=== PATIENT | female | born 1935 | race Hispanic/Latino ===

== ENCOUNTER 2017-11-06 15:03 | Inpatient (IN) | payer MEDICARE ==
[2017-11-06] VITALS (11 sets, daily range): BP systolic 103–158; BP diastolic 34–91
[~2017-11-06] VITALS: Ht 160 cm; Wt 111.2 kg
[~2017-11-06 15:03] MED LIST: ATOR40TA69 PO; CLON0.1T PO; LOSA100T29 PO; METO25TA6 PO; OMEP40CA37 PO; REPA2TAB8 PO; WARF-57 PO
[2017-11-06] MEDS ORDERED: ASPIRIN 325 MG TABLET ONE (15:09)
[2017-11-06 15:23] LABS: BASOPHILS % (AUTO) 0.5 % (0.0-5.0); EOSINOPHILS % (AUTO) 0.2 % (0.0-8.0); HEMATOCRIT 35.3 % (36-48); LYMPHOCYTES % (AUTO) 10.2 % (21.0-51.0); MEAN CORPUSCULAR HEMOGLOBIN 25.2 pg (27.0-33.0); MEAN CORPUSCULAR HGB CONC 32.4 g/dL (32.0-36.0); MEAN CORPUSCULAR VOLUME 77.7 fL (79-99); MONOCYTES % (AUTO) 8.7 % (3.0-13.0); NEUTROPHILS % (AUTO) 80.4 % (40.0-77.0); PLATELET COUNT (AUTO) 213 K/uL (130-400); RED BLOOD CELL COUNT(AUTO) 4.54 MIL/uL (4.00-5.50); RED CELL DISTRIBUTION WIDTH 16.3 % (11.0-15.5); WHITE BLOOD COUNT (AUTO) 12.1 K/uL (4.8-10.8)
[2017-11-06 15:36] LABS: CREATININE 1.5 mg/dL (0.5-1.5); POTASSIUM 4.2 mmol/L (3.5-5.1)
[2017-11-06] MEDS ORDERED: NITROGLYCERIN 5 MG/ML 10 ML VIAL IV ONE ×2 (15:36→16:02)
[2017-11-06] MEDS ORDERED: HEPARIN SODIUM 1000UNIT/ML 10ML VIAL ONE ×2 (15:36→16:02)
[2017-11-06 15:37] LABS: INR 1.27 (0.85-1.15); PARTIAL THROMBOPLASTIN TIME 28.9 SEC (26.3-35.5); PROTHROMBIN TIME 13.3 SEC (9.6-11.6)
[2017-11-06] MEDS ORDERED: METOPROLOL TARTRATE 1 MG/ML 5ML VIAL IV ONE ×3 (15:37→22:40)
[2017-11-06] MEDS ORDERED: LIDOCAINE HCL 2% 20ML ONE ×2 (15:37→16:03)
[2017-11-06] MEDS ORDERED: IOPAMIDOL-370 100 ML VIAL IV ONE ×2 (15:37→16:02)
[2017-11-06] MEDS ORDERED: ISOVUE-370 50ML VIAL IV ONE ×2 (15:40→16:02)
[2017-11-06 15:49] LABS: ALBUMIN 3.3 g/dL (3.5-5.0); BILIRUBIN,TOTAL 0.7 mg/dL (0.2-1.0); CREATINE KINASE MB 2.6 ng/mL (0.5-3.6); TOTAL PROTEIN, SERUM 7.5 g/dL (6.0-8.3)
[2017-11-06] MEDS ORDERED: MIDAZOLAM HCL 1 MG/ML 2ML VIAL ONE (16:12)
[2017-11-06] MEDS ORDERED: FENTANYL CITRATE PF 50 MCG/1 ML 2ML VIAL ONE (16:12)
[2017-11-06] MEDS ORDERED: BIVALIRUDIN 250 MG/VIAL IV ONE (16:17)
[2017-11-06] MEDS ORDERED: EPTIFIBATIDE 2 MG/ML 10 ML VIAL IVP ONE (16:23)
[2017-11-06] MEDS ORDERED: EPTIFIBATIDE 75MG/100ML BOTTLE 100 ML IV ONE (16:23)
[2017-11-06] MEDS ORDERED: SODIUM CHLORIDE 0.9% 1000ML 1,000 ML IV SCH (17:34)
[2017-11-06] MEDS ORDERED: MORPHINE SULFATE 5 MG/ML VIAL IVP SCH ×2 (17:45)
[2017-11-06] MEDS ORDERED: ACETAMINOPHEN-CODEINE 300/30MG TAB PO PRN (17:45)
[2017-11-06] MEDS ORDERED: ONDANSETRON HCL MDV 20ML 2 MG/ML VIAL IVP SCH (17:45)
[2017-11-06] MEDS ORDERED: SITA50TA PO (18:14)
[2017-11-06] MEDS ORDERED: FURO20TA4 PO (18:14)
[2017-11-06] MEDS ORDERED: AMLO5TAB2 PO (18:14)
[2017-11-06] MEDS ORDERED: GLIP10TA9 PO (18:14)
[2017-11-06] MEDS ORDERED: ONDANSETRON HCL MDV 20ML 2 MG/ML VIAL IVP PRN (18:15)
[2017-11-06] MEDS: ACETAMINOPHEN-CODEINE 300/30MG TAB PO PRN (18:35)
[2017-11-06] MEDS: FUROSEMIDE 10 MG/ML 2ML VIAL IV SCH (19:34)
[2017-11-06 21:10] LABS: CREATINE KINASE MB 1.9 ng/mL (0.5-3.6)
[2017-11-06 21:11] LABS: TROPONIN I 3.24 ng/mL (0.00-0.06)
[2017-11-06] MEDS: INSULIN HUMULIN R 100 UNIT/ML 3ML SQ SCH (21:20)
[2017-11-06] MEDS: METOPROLOL TARTRATE 25 MG TAB PO SCH (21:30)
[2017-11-06] MEDS: LISINOPRIL 5 MG TABLET PO SCH (21:30)
[2017-11-06] MEDS: ATORVASTATIN CALCIUM 20 MG TABLET PO SCH (21:30)
[2017-11-06] MEDS ORDERED: METOPROLOL TARTRATE 1 MG/ML 5ML VIAL IV PRN (21:45)
[2017-11-06] MEDS ORDERED: HEPARIN 25000 UNITS/250 ML D5W 250 ML IV PRN (21:45)
[2017-11-06] MEDS: TEMAZEPAM 30 MG CAP PO PRN (22:07)
[2017-11-06] MEDS ORDERED: ESMOLOL HCL IV ONE (22:09)
[2017-11-06] MEDS ORDERED: NACL IV ONE (22:09)
[2017-11-06] MEDS: ESMOLOL HCL 2500 MG/NACL 250 ML IV PRN (22:27)
[2017-11-06 22:31] LABS: HEMATOCRIT 32.6 % (36-48); MEAN CORPUSCULAR HEMOGLOBIN 26.5 pg (27.0-33.0); PLATELET COUNT (AUTO) 224 K/uL (130-400); RED BLOOD CELL COUNT(AUTO) 4.18 MIL/uL (4.00-5.50); RED CELL DISTRIBUTION WIDTH 16.5 % (11.0-15.5); WHITE BLOOD COUNT (AUTO) 9.1 K/uL (4.8-10.8)
[2017-11-07] VITALS (25 sets, daily range): BP systolic 83–143; BP diastolic 31–99
[2017-11-07] MEDS: ESMOLOL HCL 2500 MG/NACL 250 ML IV PRN (03:56)
[2017-11-07 05:29] LABS: HEMATOCRIT 32.5 % (36-48); MEAN CORPUSCULAR VOLUME 78.8 fL (79-99); PLATELET COUNT (AUTO) 219 K/uL (130-400); RED BLOOD CELL COUNT(AUTO) 4.13 MIL/uL (4.00-5.50); RED CELL DISTRIBUTION WIDTH 16.4 % (11.0-15.5); WHITE BLOOD COUNT (AUTO) 9.8 K/uL (4.8-10.8)
[2017-11-07 05:40] LABS: PROTHROMBIN TIME 15.6 SEC (9.6-11.6)
[2017-11-07] MEDS: FUROSEMIDE 10 MG/ML 2ML VIAL IV SCH ×2 (05:45→16:38)
[2017-11-07 06:04] LABS: CREATINE KINASE MB 8.2 ng/mL (0.5-3.6); CREATININE 1.8 mg/dL (0.5-1.5); POTASSIUM 4.2 mmol/L (3.5-5.1)
[2017-11-07 06:06] LABS: PARTIAL THROMBOPLASTIN TIME > 120.0 SEC (26.3-35.5); TROPONIN I 3.09 ng/mL (0.00-0.06)
[2017-11-07] MEDS: INSULIN HUMULIN R 100 UNIT/ML 3ML SQ SCH ×4 (06:35→20:37)
[2017-11-07] MEDS: LISINOPRIL 5 MG TABLET PO SCH ×2 (08:52→20:25)
[2017-11-07] MEDS: FAMOTIDINE 20MG TAB 20 MG TAB PO SCH ×2 (08:52→20:24)
[2017-11-07] MEDS: METOPROLOL TARTRATE 25 MG TAB PO SCH ×2 (08:52→20:24)
[2017-11-07] MEDS ORDERED: SODIUM CHLORIDE 0.9% IVP SCH (09:27)
[2017-11-07] MEDS ORDERED: ESMOLOL HCL IVP SCH (09:27)
[2017-11-07] MEDS: ACETAMINOPHEN-CODEINE 300/30MG TAB PO PRN ×2 (09:44→20:37)
[2017-11-07 13:46] LABS: INR 1.48 (0.85-1.15); PROTHROMBIN TIME 15.4 SEC (9.6-11.6)
[2017-11-07 13:51] LABS: PARTIAL THROMBOPLASTIN TIME > 120.0 SEC (26.3-35.5)
[2017-11-07] MEDS: APIXABAN 5 MG TABLET PO SCH ×2 (19:52→20:24)
[2017-11-07] MEDS: ATORVASTATIN CALCIUM 20 MG TABLET PO SCH (20:25)
[2017-11-07] MEDS ORDERED: INSULIN GLARGINE 100 UNITS/ML 10 ML VIAL SQ SCH (21:00)
[2017-11-07 21:36] LABS: INR 1.42 (0.85-1.15); PROTHROMBIN TIME 14.8 SEC (9.6-11.6)
[2017-11-08] VITALS (27 sets, daily range): BP systolic 78–129; BP diastolic 30–89
[2017-11-08] MEDS: INSULIN HUMULIN R 100 UNIT/ML 3ML SQ SCH ×4 (05:43→22:16)
[2017-11-08 05:51] LABS: BASOPHILS % (AUTO) 0.6 % (0.0-5.0); EOSINOPHILS % (AUTO) 2.1 % (0.0-8.0); HEMATOCRIT 31.7 % (36-48); LYMPHOCYTES % (AUTO) 16.9 % (21.0-51.0); MEAN CORPUSCULAR HEMOGLOBIN 25.7 pg (27.0-33.0); MEAN CORPUSCULAR HGB CONC 32.9 g/dL (32.0-36.0); MEAN CORPUSCULAR VOLUME 78.2 fL (79-99); MONOCYTES % (AUTO) 9.7 % (3.0-13.0); NEUTROPHILS % (AUTO) 70.7 % (40.0-77.0); PLATELET COUNT (AUTO) 202 K/uL (130-400); RED BLOOD CELL COUNT(AUTO) 4.05 MIL/uL (4.00-5.50); RED CELL DISTRIBUTION WIDTH 16.6 % (11.0-15.5); WHITE BLOOD COUNT (AUTO) 7.9 K/uL (4.8-10.8)
[2017-11-08 05:53] LABS: POTASSIUM 4.1 mmol/L (3.5-5.1)
[2017-11-08] MEDS: FUROSEMIDE 10 MG/ML 2ML VIAL IV SCH (06:40)
[2017-11-08 08:19] LABS: INR 1.42 (0.85-1.15); PARTIAL THROMBOPLASTIN TIME 47.5 SEC (26.3-35.5); PROTHROMBIN TIME 14.8 SEC (9.6-11.6)
[2017-11-08 08:26] LABS: MAGNESIUM 1.7 mg/dL (1.80-2.40); PHOSPHORUS 5.1 mg/dL (2.5-4.9)
[2017-11-08] MEDS ORDERED: SODIUM CHLORIDE 0.9% 1000ML 1,000 ML IV ONE ×2 (08:55→14:37)
[2017-11-08] MEDS: APIXABAN 5 MG TABLET PO SCH ×2 (09:05→22:23)
[2017-11-08] MEDS: FAMOTIDINE 20MG TAB 20 MG TAB PO SCH ×2 (09:05→22:23)
[2017-11-08] MEDS: ACETAMINOPHEN-CODEINE 300/30MG TAB PO PRN ×2 (09:05→13:34)
[2017-11-08] MEDS: LISINOPRIL 5 MG TABLET PO SCH (09:05)
[2017-11-08] MEDS: METOPROLOL TARTRATE 25 MG TAB PO SCH ×2 (09:06→21:00)
[2017-11-08] MEDS: INSULIN GLARGINE 100 UNITS/ML 10 ML VIAL SQ SCH (22:19)
[2017-11-08] MEDS: ATORVASTATIN CALCIUM 20 MG TABLET PO SCH (22:23)
[2017-11-09 04:00] VITALS: BP 110/53
[2017-11-09] MEDS: SODIUM CHLORIDE 0.9% 1000ML 1,000 ML IV SCH ×4 (04:21→16:05)
[2017-11-09 04:22] LABS: BASOPHILS % (AUTO) 0.6 % (0.0-5.0); EOSINOPHILS % (AUTO) 1.9 % (0.0-8.0); HEMATOCRIT 27.9 % (36-48); LYMPHOCYTES % (AUTO) 13.4 % (21.0-51.0); MEAN CORPUSCULAR HEMOGLOBIN 26.4 pg (27.0-33.0); MEAN CORPUSCULAR HGB CONC 33.5 g/dL (32.0-36.0); MEAN CORPUSCULAR VOLUME 78.9 fL (79-99); NEUTROPHILS % (AUTO) 74.1 % (40.0-77.0); PLATELET COUNT (AUTO) 211 K/uL (130-400); RED BLOOD CELL COUNT(AUTO) 3.53 MIL/uL (4.00-5.50); RED CELL DISTRIBUTION WIDTH 17.1 % (11.0-15.5); WHITE BLOOD COUNT (AUTO) 8.7 K/uL (4.8-10.8)
[2017-11-09 04:39] LABS: ALBUMIN 2.4 g/dL (3.5-5.0); BILIRUBIN,TOTAL 0.3 mg/dL (0.2-1.0); CREATININE 3.4 mg/dL (0.5-1.5); POTASSIUM 4.3 mmol/L (3.5-5.1)
[2017-11-09] MEDS: ACETAMINOPHEN-CODEINE 300/30MG TAB PO PRN (05:31)
[2017-11-09] MEDS: INSULIN HUMULIN R 100 UNIT/ML 3ML SQ SCH ×4 (06:20→21:00)
[2017-11-09 07:40] VITALS: BP 100/39
[2017-11-09] MEDS: FAMOTIDINE 20MG TAB 20 MG TAB PO SCH ×2 (08:31→21:19)
[2017-11-09] MEDS: APIXABAN 5 MG TABLET PO SCH ×2 (08:31→21:18)
[2017-11-09] MEDS: METOPROLOL TARTRATE 25 MG TAB PO SCH (08:31)
[2017-11-09] MEDS ORDERED: FUROSEMIDE 10 MG/ML 4ML VIAL IV SCH (10:15)
[2017-11-09] MEDS ORDERED: FUROSEMIDE 10 MG/ML 4ML VIAL IV PRN (10:30)
[2017-11-09 11:10] VITALS: BP 74/42
[2017-11-09 16:30] VITALS: BP 91/38
[2017-11-09 19:58] VITALS: BP 134/56
[2017-11-09] MEDS ORDERED: METOPROLOL TARTRATE 25 MG TAB PO SCH (21:00)
[2017-11-09] MEDS: INSULIN GLARGINE 100 UNITS/ML 10 ML VIAL SQ SCH (21:18)
[2017-11-09] MEDS: ATORVASTATIN CALCIUM 20 MG TABLET PO SCH (21:19)
[2017-11-10] VITALS (7 sets, daily range): BP systolic 98–113; BP diastolic 47–63
[2017-11-10 04:52] LABS: BASOPHILS % (AUTO) 0.3 % (0.0-5.0); EOSINOPHILS % (AUTO) 1.2 % (0.0-8.0); HEMATOCRIT 26.1 % (36-48); MEAN CORPUSCULAR HEMOGLOBIN 25.6 pg (27.0-33.0); MEAN CORPUSCULAR HGB CONC 32.5 g/dL (32.0-36.0); MEAN CORPUSCULAR VOLUME 78.6 fL (79-99); MONOCYTES % (AUTO) 8.5 % (3.0-13.0); PLATELET COUNT (AUTO) 219 K/uL (130-400); RED BLOOD CELL COUNT(AUTO) 3.31 MIL/uL (4.00-5.50); RED CELL DISTRIBUTION WIDTH 16.3 % (11.0-15.5); WHITE BLOOD COUNT (AUTO) 8.6 K/uL (4.8-10.8)
[2017-11-10 04:56] LABS: CREATININE 2.2 mg/dL (0.5-1.5); POTASSIUM 4.2 mmol/L (3.5-5.1)
[2017-11-10] MEDS: INSULIN HUMULIN R 100 UNIT/ML 3ML SQ SCH ×5 (07:02→21:00)
[2017-11-10] MEDS: LIDOCAINE 5% TOPICAL PATCH TP SCH (08:48)
[2017-11-10] MEDS: SODIUM CHLORIDE 0.9% 1000ML 1,000 ML IV SCH (08:50)
[2017-11-10] MEDS: APIXABAN 5 MG TABLET PO SCH ×2 (08:50→20:58)
[2017-11-10] MEDS: METOPROLOL TARTRATE 25 MG TAB PO SCH ×2 (08:50→21:00)
[2017-11-10] MEDS: FAMOTIDINE 20MG TAB 20 MG TAB PO SCH ×2 (08:50→20:58)
[2017-11-10] MEDS: INSULIN GLARGINE 100 UNITS/ML 10 ML VIAL SQ SCH (20:57)
[2017-11-10] MEDS: ATORVASTATIN CALCIUM 20 MG TABLET PO SCH (20:58)
[2017-11-11] MEDS: SODIUM CHLORIDE 0.9% 1000ML 1,000 ML IV SCH (02:47)
[2017-11-11 03:54] VITALS: BP 96/50
[2017-11-11 06:28] LABS: BASOPHILS % (AUTO) 0.3 % (0.0-5.0); EOSINOPHILS % (AUTO) 1.6 % (0.0-8.0); HEMATOCRIT 27.9 % (36-48); LYMPHOCYTES % (AUTO) 9.2 % (21.0-51.0); MEAN CORPUSCULAR HEMOGLOBIN 25.9 pg (27.0-33.0); MEAN CORPUSCULAR HGB CONC 32.5 g/dL (32.0-36.0); MEAN CORPUSCULAR VOLUME 79.8 fL (79-99); MONOCYTES % (AUTO) 8.8 % (3.0-13.0); NEUTROPHILS % (AUTO) 80.1 % (40.0-77.0); PLATELET COUNT (AUTO) 253 K/uL (130-400); RED CELL DISTRIBUTION WIDTH 16.7 % (11.0-15.5); WHITE BLOOD COUNT (AUTO) 7.2 K/uL (4.8-10.8)
[2017-11-11] MEDS: INSULIN HUMULIN R 100 UNIT/ML 3ML SQ SCH ×4 (06:40→21:51)
[2017-11-11 06:46] LABS: CREATININE 1.4 mg/dL (0.5-1.5); POTASSIUM 4.3 mmol/L (3.5-5.1)
[2017-11-11 07:12] VITALS: BP 122/62
[2017-11-11 07:16] LABS: B-TYPE NATRIURETIC PEPTIDE 1390 pg/mL (0-100)
[2017-11-11] MEDS: METOPROLOL TARTRATE 25 MG TAB PO SCH ×2 (08:43→21:43)
[2017-11-11] MEDS: FAMOTIDINE 20MG TAB 20 MG TAB PO SCH ×2 (08:43→21:42)
[2017-11-11] MEDS: LIDOCAINE 5% TOPICAL PATCH TP SCH (08:43)
[2017-11-11] MEDS: APIXABAN 5 MG TABLET PO SCH ×2 (08:43→21:42)
[2017-11-11] MEDS ORDERED: DIGOXIN 50 MCG/ML PO SCH (10:15)
[2017-11-11 11:55] VITALS: BP 112/81
[2017-11-11] MEDS: DIGOXIN 250 MCG/ML 2ML AMP IV SCH ×2 (12:00→17:34)
[2017-11-11 16:55] VITALS: BP 132/82
[2017-11-11 19:42] VITALS: BP 113/63
[2017-11-11] MEDS: ATORVASTATIN CALCIUM 20 MG TABLET PO SCH (21:42)
[2017-11-11] MEDS: INSULIN GLARGINE 100 UNITS/ML 10 ML VIAL SQ SCH (21:45)
[2017-11-11 23:31] VITALS: BP 118/75
[2017-11-12 04:04] VITALS: BP 117/49
[2017-11-12 05:26] LABS: BASOPHILS % (AUTO) 3.6 % (0.0-5.0); EOSINOPHILS % (AUTO) 4.3 % (0.0-8.0); HEMATOCRIT 26.5 % (36-48); LYMPHOCYTES % (AUTO) 14.9 % (21.0-51.0); MEAN CORPUSCULAR HEMOGLOBIN 24.7 pg (27.0-33.0); MEAN CORPUSCULAR HGB CONC 31.4 g/dL (32.0-36.0); MEAN CORPUSCULAR VOLUME 78.6 fL (79-99); MONOCYTES % (AUTO) 6.2 % (3.0-13.0); NUCLEATED RED BLOOD CELLS 0.1 % (0.0-0.19); PLATELET COUNT (AUTO) 236 K/uL (130-400); RED BLOOD CELL COUNT(AUTO) 3.37 MIL/uL (4.00-5.50); RED CELL DISTRIBUTION WIDTH 16.3 % (11.0-15.5)
[2017-11-12 05:29] LABS: CREATININE 1.2 mg/dL (0.5-1.5); POTASSIUM 3.9 mmol/L (3.5-5.1)
[2017-11-12] MEDS: INSULIN HUMULIN R 100 UNIT/ML 3ML SQ SCH ×4 (06:08→21:00)
[2017-11-12 08:05] VITALS: BP 133/68
[2017-11-12] MEDS: METOPROLOL TARTRATE 25 MG TAB PO SCH ×2 (08:46→21:45)
[2017-11-12] MEDS: FAMOTIDINE 20MG TAB 20 MG TAB PO SCH ×2 (08:46→21:45)
[2017-11-12] MEDS: APIXABAN 5 MG TABLET PO SCH ×2 (08:46→21:45)
[2017-11-12] MEDS: LIDOCAINE 5% TOPICAL PATCH TP SCH (08:47)
[2017-11-12 12:10] VITALS: BP 137/69
[2017-11-12 16:32] VITALS: BP 112/59
[2017-11-12 19:52] VITALS: BP 132/81
[2017-11-12] MEDS: ATORVASTATIN CALCIUM 20 MG TABLET PO SCH (21:45)
[2017-11-12] MEDS: INSULIN GLARGINE 100 UNITS/ML 10 ML VIAL SQ SCH (21:52)
[2017-11-12] MEDS: TEMAZEPAM 30 MG CAP PO PRN (23:25)
[2017-11-12 23:39] VITALS: BP 110/42
[2017-11-13 03:58] VITALS: BP 139/90
[2017-11-13] MEDS: INSULIN HUMULIN R 100 UNIT/ML 3ML SQ SCH ×4 (06:23→20:56)
[2017-11-13 07:47] VITALS: BP 140/80
[2017-11-13] MEDS: FAMOTIDINE 20MG TAB 20 MG TAB PO SCH ×2 (08:31→20:04)
[2017-11-13] MEDS: APIXABAN 5 MG TABLET PO SCH ×2 (08:31→20:04)
[2017-11-13] MEDS: METOPROLOL TARTRATE 25 MG TAB PO SCH ×2 (08:31→20:04)
[2017-11-13] MEDS: LIDOCAINE 5% TOPICAL PATCH TP SCH (08:46)
[2017-11-13 11:57] VITALS: BP 104/60
[2017-11-13 16:51] VITALS: BP 111/60
[2017-11-13] MEDS: IPRATROPIUM 0.5 MG/2.5 ML INH IH SCH ×2 (17:49→21:44)
[2017-11-13 19:47] VITALS: BP 126/55
[2017-11-13] MEDS: ATORVASTATIN CALCIUM 20 MG TABLET PO SCH (20:04)
[2017-11-13] MEDS: INSULIN GLARGINE 100 UNITS/ML 10 ML VIAL SQ SCH (20:57)
[2017-11-13 23:50] VITALS: BP 124/62
[2017-11-14 04:14] VITALS: BP 123/66
[2017-11-14 04:45] LABS: CREATININE 1.2 mg/dL (0.5-1.5); POTASSIUM 4.2 mmol/L (3.5-5.1)
[2017-11-14] MEDS: INSULIN HUMULIN R 100 UNIT/ML 3ML SQ SCH ×4 (05:48→21:00)
[2017-11-14] MEDS: IPRATROPIUM 0.5 MG/2.5 ML INH IH SCH ×3 (06:06→21:38)
[2017-11-14] MEDS: FAMOTIDINE 20MG TAB 20 MG TAB PO SCH ×2 (07:39→21:13)
[2017-11-14] MEDS: METOPROLOL TARTRATE 25 MG TAB PO SCH ×2 (07:39→21:13)
[2017-11-14] MEDS: APIXABAN 5 MG TABLET PO SCH ×2 (07:39→21:13)
[2017-11-14 07:55] VITALS: BP 141/52
[2017-11-14] MEDS: LIDOCAINE 5% TOPICAL PATCH TP SCH (09:21)
[2017-11-14] MEDS ORDERED: DIGOXIN 125 MCG TABLET PO SCH (10:45)
[2017-11-14 11:50] VITALS: BP 128/90
[2017-11-14] MEDS ORDERED: FUROSEMIDE 10 MG/ML 2ML VIAL IVP SCH (13:00)
[2017-11-14 16:48] VITALS: BP 121/81
[2017-11-14 20:18] VITALS: BP 137/84
[2017-11-14] MEDS: ATORVASTATIN CALCIUM 20 MG TABLET PO SCH (21:13)
[2017-11-14] MEDS: INSULIN GLARGINE 100 UNITS/ML 10 ML VIAL SQ SCH (21:14)
[2017-11-15 01:23] VITALS: BP 127/80
[2017-11-15 03:55] LABS: BASOPHILS % (AUTO) 0.5 % (0.0-5.0); EOSINOPHILS % (AUTO) 3.2 % (0.0-8.0); HEMATOCRIT 29.1 % (36-48); LYMPHOCYTES % (AUTO) 18.4 % (21.0-51.0); MEAN CORPUSCULAR HEMOGLOBIN 25.1 pg (27.0-33.0); MEAN CORPUSCULAR VOLUME 78.2 fL (79-99); MONOCYTES % (AUTO) 8.1 % (3.0-13.0); NEUTROPHILS % (AUTO) 69.8 % (40.0-77.0); PLATELET COUNT (AUTO) 305 K/uL (130-400); RED BLOOD CELL COUNT(AUTO) 3.72 MIL/uL (4.00-5.50); RED CELL DISTRIBUTION WIDTH 16.1 % (11.0-15.5); WHITE BLOOD COUNT (AUTO) 6.1 K/uL (4.8-10.8)
[2017-11-15 04:03] VITALS: BP 157/59
[2017-11-15 04:13] LABS: CREATININE 1.2 mg/dL (0.5-1.5); POTASSIUM 3.7 mmol/L (3.5-5.1)
[2017-11-15] MEDS: IPRATROPIUM 0.5 MG/2.5 ML INH IH SCH (06:16)
[2017-11-15] MEDS: INSULIN HUMULIN R 100 UNIT/ML 3ML SQ SCH ×3 (06:38→16:31)
[2017-11-15] MEDS: FAMOTIDINE 20MG TAB 20 MG TAB PO SCH (07:48)
[2017-11-15] MEDS: APIXABAN 5 MG TABLET PO SCH (07:49)
[2017-11-15] MEDS: METOPROLOL TARTRATE 25 MG TAB PO SCH (07:49)
[2017-11-15 08:03] VITALS: BP 121/57
[2017-11-15] MEDS ORDERED: DIGOXIN 125 MCG TABLET PO SCH (09:00)
[2017-11-15] MEDS: LIDOCAINE 5% TOPICAL PATCH TP SCH (10:22)
[2017-11-15 11:41] VITALS: BP 126/73
[2017-11-15 16:34] VITALS: BP 138/50
== END 2017-11-15 18:35 | DRG 250 ==
LOC: EDH 15:03 → OBSVTOIN 15:30 → EDHIP 15:30 → 2CH 17:03 → 2DH 11-08 19:02
PROVIDERS: ADMIT Internal Medicine Nephrology; ATTEND Internal Medicine Nephrology
PROC: B2111ZZ Fluoroscopy of Multiple Coronary Arteries using Low Osmolar Contrast (ICD-10-PCS; principal; 2017-11-06)
PROC: B2151ZZ Fluoroscopy of Left Heart using Low Osmolar Contrast (ICD-10-PCS; 2017-11-06)
PROC: 02703ZZ Dilation of Coronary Artery, One Artery, Percutaneous Approach (ICD-10-PCS; 2017-11-06)
PROC: 4A023N7 Measurement of Cardiac Sampling and Pressure, Left Heart, Percutaneous Approach (ICD-10-PCS; 2017-11-06)
DX: I21.3 ST elevation (STEMI) myocardial infarction of unspecified site (principal); N17.0 Acute kidney failure with tubular necrosis; Z68.41 Body mass index [BMI] 40.0-44.9, adult; I50.20 Unspecified systolic (congestive) heart failure; I13.0 Hypertensive heart and chronic kidney disease with heart failure and stage 1 through stage 4 chronic kidney disease, or unspecified chronic kidney disease; E11.22 Type 2 diabetes mellitus with diabetic chronic kidney disease; E11.65 Type 2 diabetes mellitus with hyperglycemia; E78.5 Hyperlipidemia, unspecified; I25.10 Atherosclerotic heart disease of native coronary artery without angina pectoris; D64.9 Anemia, unspecified; E66.9 Obesity, unspecified; I48.91 Unspecified atrial fibrillation; K21.9 Gastro-esophageal reflux disease without esophagitis; N18.9 Chronic kidney disease, unspecified; N20.0 Calculus of kidney; Z79.01 Long term (current) use of anticoagulants; Z83.3 Family history of diabetes mellitus; Z86.711 Personal history of pulmonary embolism; Z87.442 Personal history of urinary calculi; Z90.49 Acquired absence of other specified parts of digestive tract
CPT/HCPCS: 36415; 71045; 72192; 76770; 80048; 80053; 80061; 82550; 82553; 82948; 83735; 83874; 83880; 84100; 84484; 85025; 85027; 85610; 85730; 92920; 93005; 93306; 93458; 94640; 94664; 97039; 99152; 99153; 99291; A4357; C1725; C1760; C1769; C1887; C1894; J0583; J1160; J1327; J1644; J1815; J1940; J2250; J3010; J3490; J7030; Q9967